=== PATIENT | male | born 1955 | race American Indian/Alaskan Native ===

== ENCOUNTER 2016-08-02 23:46 | Emergency (ER) | payer SELFPAY ==
[2016-08-03] MEDS ORDERED: TYLENOL ONE (00:37)
[2016-08-03 00:44] VITALS: BP 150/106
[2016-08-03] MEDS ORDERED: TYLENOL PO ONE (00:44)
== END 2016-08-03 03:55 | disposition left against medical advice (07) ==
LOC: ED 23:46
DX: S01.91XA Laceration without foreign body of unspecified part of head, initial encounter (principal); Z53.21 Procedure and treatment not carried out due to patient leaving prior to being seen by health care provider; X58.XXXA Exposure to other specified factors, initial encounter; Y93.89 Activity, other specified; Y92.89 Other specified places as the place of occurrence of the external cause; Y99.8 Other external cause status